=== PATIENT | female | born 1960 | race Caucasian/White ===

== ENCOUNTER → 2017-05-13 | Outpatient (CLI) | payer OTHER ==
[2017-05-13 18:04] LABS: CH 27.3; CHCM 31.4; HCT 22.3 % (34.0-46.0); HDW 3.69; HGB 7.2 gm/dL (11.4-16.0); Hypochromasia Moderate; MCH 28.2 pg (25.0-35.0); MCHC 32.2 g/dL (31.0-37.0); MCV 87.3 fL (80.0-100.0); Mean Platelet Volume 7.4; Poikilocytosis Slight; RBC 2.55 m/uL (3.80-5.40); RDW 15.9 % (11.5-15.5); WBC 5.3 k/uL (3.8-10.6)
== END | disposition home or self-care (01) ==
LOC: LABWHC1 16:38
PROVIDERS: ATTEND Family Medicine
DX: D64.9 Anemia, unspecified (principal)
CPT/HCPCS: 36415; 85027

== ENCOUNTER 2017-05-18 13:59 | Inpatient (IN) | payer OTHER ==
[2017-05-18 17:40] LABS: Glucose,Whole Blood 105 mg/dL (75-99)
[2017-05-18 19:26] LABS: Anisocytosis Slight; Basophils % (A) 0 %; CH 28.4; CHCM 31.9; Eosinophils # (A) 0.1 k/uL (0-0.7); Eosinophils % (A) 1 %; HDW 3.52; Hypochromasia Slight; Luc # (Auto) 0.11; Luc % (Auto) 2; Lymphocytes # (A) 0.8 k/uL (1.0-4.8); Lymphocytes % (A) 16 %; MCH 28.1 pg (25.0-35.0); MCHC 31.5 g/dL (31.0-37.0); MCV 89.2 fL (80.0-100.0); Mean Platelet Volume 8.8; Monocytes # (A) 0.4 k/uL (0-1.0); Monocytes % (A) 8 %; Neutrophils # (A) 3.6 k/uL (1.3-7.7); Neutrophils % (A) 72 %; Poikilocytosis Slight; RBC 2.25 m/uL (3.80-5.40); RDW 16.2 % (11.5-15.5); WBC (Perox) 5.08
[2017-05-18 19:32] LABS: HGB 6.3 gm/dL (11.4-16.0)
[2017-05-18] MEDS ORDERED: guaiFENesin 600 MG TABLET.ER PO PRN (19:36)
[2017-05-18] MEDS ORDERED: ACETAMINOPHEN TAB 325 MG TAB PO PRN (19:36)
[2017-05-18 19:56] LABS: Manual Review Performed; Stomatocytes Present
[2017-05-18 20:48] LABS: Glucose,Whole Blood 107 mg/dL (75-99)
[2017-05-18] MEDS: HYDROCORTISONE 10 MG TAB PO SCH (20:52)
[2017-05-19] MEDS: FUROSEMIDE 10 MG/ML 2 ML VIAL IV PRN ×2 (04:28→11:30)
[2017-05-19 05:15] LABS: Basophils % (A) 0 %; CH 29.2; CHCM 32.5; Eosinophils # (A) 0.1 k/uL (0-0.7); Eosinophils % (A) 2 %; HCT 22.6 % (34.0-46.0); HDW 3.69; HGB 7.3 gm/dL (11.4-16.0); Hypochromasia Slight; Luc % (Auto) 2; Lymphocytes # (A) 1.3 k/uL (1.0-4.8); Lymphocytes % (A) 25 %; MCHC 32.1 g/dL (31.0-37.0); MCV 90.2 fL (80.0-100.0); Mean Platelet Volume 7.6; Monocytes # (A) 0.4 k/uL (0-1.0); Monocytes % (A) 8 %; Neutrophils # (A) 3.2 k/uL (1.3-7.7); Neutrophils % (A) 63 %; Poikilocytosis Slight; RBC 2.51 m/uL (3.80-5.40); WBC 5.1 k/uL (3.8-10.6); WBC (Perox) 5.25
[2017-05-19] MEDS ORDERED: LEVOTHYROXINE 100 MCG TAB PO SCH (06:30)
[2017-05-19 07:21] LABS: Glucose,Whole Blood 78 mg/dL (75-99)
[2017-05-19] MEDS ORDERED: FLUTICASONE 50MCG/SPRAY NASAL 16GM EA NOSTRIL SCH (09:00)
[2017-05-19] MEDS ORDERED: NIFEdipine XL 30 MG TAB.ER.24 PO SCH (09:00)
[2017-05-19] MEDS ORDERED: FAMOTIDINE 20 MG TAB PO SCH (09:00)
[2017-05-19] MEDS ORDERED: HYDROCORTISONE 10 MG TAB PO SCH (09:00)
[2017-05-19 09:17] VITALS: PULSE 83
[2017-05-19 10:45] VITALS: BP 138/70; RESP 20; TEMP 97.8
--- NOTE | 2017-05-19 12:17 | P.DS ---
Providers Date of admission: 05/18/17 16:39 Expected date of discharge: 05/19/17 Attending physician: Misha Martin Consults: 05/18/17 18:08 Consult Physician Routine Consulting Provider: Price Angulo Consult Reason/Comments: anemia Do you want consulting provider notified?: Yes [facility]: 57-year-old female who was directly admitted to the hospital from Dr. Martin on May 18, 2017 for anemia. The patient has a prior history of CVA , diabetes mellitus, hypertension, asthma, right foot transmetatarsal amputation , and osteomyelitis. Her hemoglobin upon admission to the hospital was 6.3. She received 2 units of packed RBCs. Her hemoglobin this morning increased to 7.3, however her second unit of blood was still infusing. The patient denies any active bleeding episodes at home. The etiology behind the anemia was unknown and Dr. Angulo was consulted at the request of Dr. Martin. Dr. Martin stated the patient's hemoglobin is stable at this time patient may be discharged and to follow up outpatient. DISCHARGE DIAGNOSIS: 1. Anemia, etiology unknown at this time. Status post transfusion of 2 units packed RBCs. Patient to follow up outpatient with Dr. Martin. 2. History of essential hypertension. 3. History of asthma, no evidence of exacerbation 4. History of CVA, no deficits remaining Patient Condition at Discharge: Stable Plan - Discharge Summary New Discharge Prescriptions: Continue Acetaminophen Tab [Tylenol] 650 mg PO Q6HR PRN #0 tab PRN Reason: Fever And/ Or Pain Fluticasone Nasal [place] [Flonase Nasal [place]] 2 spr EA NOSTRIL DAILY guaiFENesin [Mucinex] 600 mg PO BID PRN PRN Reason: Congestion Ranitidine HCl [Zantac] 150 mg PO DAILY NIFEdipine [Procardia XL] 30 mg PO DAILY Levothyroxine Sodium [Synthroid] 100 mcg PO DAILY Hydrocortisone [Cortef] 5 mg PO HS Hydrocortisone [Cortef] 10 mg PO QAM Discharge Medication List Acetaminophen Tab [Tylenol] 650 mg PO Q6HR PRN #0 tab 03/06/16 [Rx] Fluticasone Nasal [place] [Flonase Nasal [place]] 2 spr EA NOSTRIL DAILY 05/18/17 [ History] Hydrocortisone [Cortef] 5 mg PO HS 05/18/17 [History] Hydrocortisone [Cortef] 10 mg PO QAM 05/18/17 [History] Levothyroxine Sodium [Synthroid] 100 mcg PO DAILY 05/18/17 [History] NIFEdipine [Procardia XL] 30 mg PO DAILY 05/18/17 [History] Ranitidine HCl [Zantac] 150 mg PO DAILY 05/18/17 [History] guaiFENesin [Mucinex] 600 mg PO BID PRN 05/18/17 [History] Follow up Appointment(s)/Referral(s): Misha Martin MD [Primary Care Provider] - 05/20/17 2:15 pm [facility], [NON-STAFF] - 1 Week Patient Instructions/Handouts: Anemia (DC) Discharge Disposition: HOME SELF-CARE
[2017-05-19 12:27] LABS: Glucose,Whole Blood 84 mg/dL (75-99)
[2017-05-19 13:23] LABS: CH 29.4; CHCM 32.8; HCT 28.7 % (34.0-46.0); HDW 3.71; Hypochromasia Slight; MCH 28.6 pg (25.0-35.0); MCHC 31.8 g/dL (31.0-37.0); MCV 89.9 fL (80.0-100.0); Mean Platelet Volume 8.1; Poikilocytosis Slight; RBC 3.19 m/uL (3.80-5.40); RDW 15.8 % (11.5-15.5); WBC 6.3 k/uL (3.8-10.6)
[2017-05-19 13:50] LABS: HGB 9.1 gm/dL (11.4-16.0)
--- NOTE | 2017-05-19 19:02 | P.CONS ---
History of Present Illness - Reason for Consult Consult date: 05/19/17 Severe anemia, and history of thrombocytopenia - History of Present Illness The patient is a 57-year-old lady, initially seen in consult in . At that time she had been admitted with masslike infiltrate in the lung, which actually resolved with antibiotics. The patient has had issues with nonhealing wounds and ulcers in the right lower exudate related to diabetes and vascular insufficiency. She was then seen in 2016 at [facility] for low platelets. Workup for the same was essentially negative, and it was felt that these were due to a combination of increased consumption from inflammation related to her wounds, as well as liver insufficiency. He being had shown cirrhotic appearing liver that was felt to be due to fatty infiltration. The patient subsequently developed severe GI bleeding and was transferred to the [facility] in late summer of 2015. According to her medical POA , the patient was inpatient at [facility] for about 11 months ! She had recurrent GI bleed with multiple scopes being negative for a definite source. In addition she also had multiple episodes of infection related to wounds in her right lower extremity. She was finally discharged about 3 months ago. Prior to her admission to the [facility], her hemoglobin had generally been in the 9-10 range. This was felt to be due to anemia of inflammation with the workup at the time being negative for other causes. Since discharge, hemoglobin has mostly been in the 8 range according to her POA. She was admitted to the hospital, as her hemoglobin was now found to be 6.6. The patient denied any obvious bleeding. In fact she stated that she did not really notice any change in symptoms. She has had partial amputation of her right foot, about 3 weeks ago. The patient is currently being transfused. Platelets on admission were 140 but is currently normal at 160+. Consult was placed for further evaluation and recommendations. Review of Systems Constitutional: Reports chronic pain, Reports fatigue Eyes: denies blurred vision, denies pain Ears: deny: decreased hearing, ear discharge, earache, tinnitus Ears, nose, mouth and throat: Denies headache, Denies sore throat Cardiovascular: Reports dyspnea on exertion Respiratory: Reports dyspnea Gastrointestinal: Denies abdominal pain, Denies diarrhea, Denies nausea, Denies vomiting Genitourinary: Denies dysuria, Denies hematuria Menstruation: Reports postmenopausal Musculoskeletal: Reports as per HPI (Chronic wound and circulation issues, especially affecting distal right lower extremity), Reports muscle weakness Integumentary: Reports foot/leg ulcers, Reports wounds Neurological: Reports weakness, Denies numbness Psychiatric: Reports depression, Reports difficulty concentrating, Denies anxiety Endocrine: Reports as per HPI (Known [place]'s syndrome), Reports fatigue, Reports weight change Hematologic/Lymphatic: Reports as per HPI Past Medical History Past Medical History: Asthma, CVA/TIA, Diabetes Mellitus, Hypertension Additional Past Medical History / Comment(s): osteomylitis right pinkly toe 2010 with hyper baric tx., uti History of Any Multi-Drug Resistant Organisms: MRSA, 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, 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 MDRO Source:: right arm skin-MRSA, urine-VRE Past Surgical History: Cholecystectomy, Orthopedic Surgery, Tonsillectomy Additional Past Surgical History / Comment(s): right arm mrsa 2010, right fifth toe partial amputation, right foot transmetatarsal amputated 12/10/15 Past Anesthesia/Blood Transfusion Reactions: No Reported Reaction Additional Past Anesthesia/Blood Transfusion Reaction / Comm: previous blood tranfusions Past Psychological History: Anxiety, Depression Smoking Status: Never smoker Past Alcohol Use History: None Reported Past Drug Use History: None Reported - Past Family History Father Family Medical History: AFIB, Congestive Heart Failure (CHF), COPD, Coronary Artery Disease (CAD), CVA/TIA, Diabetes Mellitus, Dialysis, GI Bleed, Hypertension, Myocardial Infarction (AL), Renal Disease, Sleep Apnea/CPAP/BIPAP Mother Family Medical History: Cancer, Osteoarthritis (OA) Additional Family Medical History / Comment(s): CA cervical mets to brain and lung Medications and Allergies Home Medications Medication Instructions Recorded Confirmed Type Fluticasone Nasal [place] [Flonase 2 spr EA NOSTRIL DAILY 05/18/17 05/18/17 History Nasal [place]] Hydrocortisone [Cortef] 5 mg PO HS 05/18/17 05/18/17 History Hydrocortisone [Cortef] 10 mg PO QAM 05/18/17 05/18/17 History Levothyroxine Sodium [Synthroid] 100 mcg PO DAILY 05/18/17 05/18/17 History NIFEdipine [Procardia XL] 30 mg PO DAILY 05/18/17 05/18/17 History Ranitidine HCl [Zantac] 150 mg PO DAILY 05/18/17 05/18/17 History guaiFENesin [Mucinex] 600 mg PO BID PRN 05/18/17 05/18/17 History Allergies Allergy/AdvReac Type Severity Reaction Status Date / Time Penicillins Allergy Unknown Verified 05/18/17 18:42 Childhood hydrocodone [From [place]] AdvReac WEAKNESS Verified 05/18/17 18:42 NARCOTICS AdvReac WEAKNESS Uncoded 05/18/17 18:42 Physical Exam Vitals: Vital Signs Temp Pulse Pulse Resp BP BP Pulse Ox 05/19/17 10:45 97.8 F 20 138/70 05/19/17 07:31 97.6 F 83 18 144/69 94 L 05/19/17 07:01 97.6 F 83 18 144/69 94 L 05/19/17 07:00 98.1 F 84 16 145/68 94 L 05/19/17 06:53 98.6 F 84 16 145/68 94 L 05/19/17 06:51 98.2 F 80 15 138/62 96 05/18/17 23:35 97.6 F 87 18 145/79 96 05/18/17 23:12 98.1 F 88 15 146/71 93 L 05/18/17 23:07 97.0 F L 91 17 138/70 97 05/18/17 23:05 97.3 F L 88 17 138/70 97 05/18/17 23:00 97.1 F L 89 18 140/72 96 05/18/17 22:55 97.0 F L 90 16 153/75 97 Intake and Output 05/19/17 05/19/17 05/19/17 06:59 14:59 22:59 Intake Total 510 560 Balance 510 560 Intake: Oral 200 250 Blood Product 310 310 As-1 Unit 0 310 [id number] Rc As-1 Unit 310 [id number] Other: Voiding Method Bedside Commode # Voids 1 1 # Bowel Movements 1 - Constitutional General appearance: no acute distress - EENT Eyes: EOMI, PERRLA ENT: hearing grossly normal, normal oropharynx - Neck Neck: no lymphadenopathy Thyroid: bilateral: normal size - Respiratory Respiratory: bilateral: CTA - Cardiovascular Rhythm: regular Heart sounds: normal: S1, S2 - Gastrointestinal General gastrointestinal: normal bowel sounds, soft - Integumentary Integumentary: calor, cellulitis (Distal right lower extremity), ulcer (Shallow ulcer, medial distal right lower extremity) - Neurologic Neurologic: CNII-XII intact - Musculoskeletal Partial amputation right foot Musculoskeletal: generalized weakness - Psychiatric Psychiatric: A&O x's 3, appropriate affect Results CBC & Chem 7: 05/19/17 13:06 Labs: Abnormal Lab Results - Last 24 Hours (Table) 05/18/17 05/18/17 05/18/17 Range/Units 17:37 19:14 19:14 RBC 2.25 L (3.80-5.40) m/uL Hgb 6.3 L* (11.4-16.0) gm/dL Hct 20.0 L* (34.0-46.0) % RDW 16.2 H (11.5-15.5) % Plt Count 126 L (150-450) k/uL Lymphocytes # 0.8 L (1.0-4.8) k/uL POC Glucose (mg/dL) 105 H (75-99) mg/dL Crossmatch See Detail 05/18/17 05/19/17 05/19/17 Range/Units 20:37 05:02 13:06 RBC 2.51 L 3.19 L (3.80-5.40) m/uL Hgb 7.3 L 9.1 L D (11.4-16.0) gm/dL Hct 22.6 L 28.7 L (34.0-46.0) % RDW 16.0 H 15.8 H (11.5-15.5) % Plt Count 140 L (150-450) k/uL Lymphocytes # (1.0-4.8) k/uL POC Glucose (mg/dL) 107 H (75-99) mg/dL Crossmatch Chest x-ray: report reviewed Assessment and Plan (1) Anemia Narrative/Plan: The patient has a history of fairly chronic anemia, though in the past has been quite mild, usually in the 10-11 range. She has had workup for this previously, indicating that this was due to inflammation/renal insufficiency. Since a prolonged hospitalization at the [facility], according to her POA, hemoglobin has mostly been in the 8 range. As noted, she did have significant GI bleeding during her hospitalization. Hemoglobin is currently drop to 6.6. The patient reports no obvious bleeding. A primary differential, is chronic bone marrow dysfunction due to renal insufficiency and inflammation, with additional acute compromise due to a recent blood loss and inflammation from surgery. She did receive a unit of blood during her recent amputation. Other causes, such as recurrent GI blood loss or hemolysis are also possibilities though less likely. The patient is appropriately being transfused. Follow counts posttransfusion to check response. Labs will be ordered to rule out other causes. If workup indicates that the anemia is related to inflammation and chronic bone marrow dysfunction, and continued monitoring would be recommended, with the anticipation that hemoglobin will improve, with improvement in her general health status. Status: Acute (2) Thrombocytopenia Narrative/Plan: On the patient has had mild drops and platelet counts transiently, with more significant rubs noted in association with acute illness. Based on workup in the past, it appears that this is again due to diminished production, as well as splenic sequestration due to her chronic liver disease, as well as increased consumption during acute illness/inflammation. Currently. Counts are normal/ near normal. No intervention is required. Status: Acute
[2017-05-19 19:33] LABS: Reticulocyte % 0.4 % (0.5-2.0)
[2017-05-19 19:44] LABS: % Iron Saturation 22.7 % (20-50)
[2017-05-19] MEDS: HYDROCORTISONE 10 MG TAB PO SCH (20:52)
--- NOTE | 2017-05-20 10:06 | HP ---
SUBJECTIVE: A 57-year-old white female admitted to the hospital for significant anemia. Hemoglobin was 6.3 Patient has had multiple medical conditions including multiple amputations of the right foot and Jennie disease. She has adrenocortical insufficiency. She has history of GERD, diabetes mellitus, hypothyroidism as well as hypertension. Medications include: 1. Nifedipine, Procardia XL, 30 mg daily. 2. Synthroid 100 mcg daily. 3. Cortef 10 mg q.a.m. and 5 q.h.s. 4. Fluticasone nasal spray. 5. Pepcid 20 mg daily. REVIEW OF SYSTEMS: PSYCH: Negative. NEURO: Negative. VASCULAR: Negative. IMMUNE: Negative. INTEGUMENT: Negative. GI: Negative. : Negative. OPHTHALMOLOGIC: Negative. PHYSICAL EXAM: Temp 98.1, blood pressure 130s to 140s over 60s to 70s, O2 is 92 to 94. Oxygen 94% on room. Respiratory rate 16 to 18. Pulse is 80s. CARDIOVASCULAR: S1 and S2. LUNGS: Transmitted airway sounds. HEMATOLOGIC: Negative Homans. PSYCH: Fair mood affect. NEUROLOGIC: Alert and oriented x3. ASSESSMENT: 1. Severe anemia requiring blood transfusion. 2. Anemia, probably multifactorial was checked for Dr. Angulo for hematology consult and rectal bleeding evaluation. Continue with current medications and treatment. Two units of packed red blood cells will be given then discharged home. MTDD
== END 2017-05-19 21:35 | disposition home health service (06) | DRG 812 ==
LOC: 4MS4W 16:39
PROVIDERS: ADMIT Family Medicine; ATTEND Family Medicine
PROC: 30233N1 Transfusion of Nonautologous Red Blood Cells into Peripheral Vein, Percutaneous Approach (ICD-10-PCS; principal; 2017-05-18)
DX: D64.9 Anemia, unspecified (principal); E24.9 Cushing's syndrome, unspecified; E27.40 Unspecified adrenocortical insufficiency; E11.69 Type 2 diabetes mellitus with other specified complication; D69.6 Thrombocytopenia, unspecified; E03.9 Hypothyroidism, unspecified; I10 Essential (primary) hypertension; J45.909 Unspecified asthma, uncomplicated; K21.9 Gastro-esophageal reflux disease without esophagitis; K76.9 Liver disease, unspecified; F32.9 Major depressive disorder, single episode, unspecified; F41.9 Anxiety disorder, unspecified; Z86.14 Personal history of Methicillin resistant Staphylococcus aureus infection; Z79.899 Other long term (current) drug therapy; Z82.49 Family history of ischemic heart disease and other diseases of the circulatory system; Z89.431 Acquired absence of right foot
CPT/HCPCS: 82607; 83540; 83550; 85025; 85027; 85045; 86850; 86900; 86901; 86920

== ENCOUNTER → 2017-06-01 | Outpatient (CLI) | payer OTHER ==
--- NOTE | 2017-06-01 11:33 | CT ---
EXAMINATION TYPE: CT abdomen wo con DATE OF EXAM: 06/01/2017 COMPARISON: NONE INDICATION: Patient has no complaints at time of study. Presurgical check of IVC filter. DLP: 1045 mGycm, Automated exposure control for dose reduction was used. CONTRAST: 0 mL of Omnipaque 350. Study performed without Oral Contrast TECHNIQUE: Axial images were obtained from above the diaphragm to the pubic rami in the axial plane a t 5 mm thick sections. Reconstructed images are reviewed on the computer in the coronal plane. FINDINGS: Limited CT sections are obtained the lung bases. Some streak opacities in the posterior medial right lung base most likely atelectasis.. CT ABDOMEN: Liver: Normal Spleen: Normal Pancreas: Normal Adrenal glands: The adrenal glands are normal. Gallbladder: Normal Kidneys: No masses are evident. No hydronephrosis is present. No cysts are present. There is some increased density within the inferior pole right kidney. A series of 0.3 cm calcifications are linear arrangement may be present inferior pole right kidney. Couple of punctate calcifications at the mid to inferior pole left kidney measuring 0.2 cm in diameter. Aorta: Normal Inferior vena cava: Inferior vena cava filter is present with the tip below the level of the renal ar teries and veins. CT PELVIS: Limited Loops of bowel within the abdomen and pelvis are normal. Studies without oral contrast limiting t he evaluation. There is an anterior abdominal wall hernia containing loops of bowel without obstructi on. This area is incompletely evaluated on of the [id number]. IMPRESSIONS: 1. Suspected 0.3 cm calcifications inferior pole right kidney. No hydronephrosis is evident. Couple of 0.2 cm punctate mid to inferior pole left renal calcifications are also present. 2. Inferior vena cava filter position appears normal.
== END | disposition home or self-care (01) ==
LOC: RADCTMAIN 08:34
PROVIDERS: ATTEND Family Medicine
DX: N28.89 Other specified disorders of kidney and ureter (principal); T82.515A Breakdown (mechanical) of umbrella device, initial encounter
CPT/HCPCS: 74150

== ENCOUNTER → 2018-06-24 | Outpatient (CLI) | payer OTHER ==
[2018-06-24 17:41] LABS: Basophils % (A) 1 %; Eosinophils # (A) 0.2 k/uL (0-0.7); Eosinophils % (A) 4 %; HCT 35.4 % (34.0-46.0); Hypochromasia Slight; Lymphocytes # (A) 1.5 k/uL (1.0-4.8); Lymphocytes % (A) 24 %; MCH 27.9 pg (25.0-35.0); MCHC 31.1 g/dL (31.0-37.0); MCV 89.6 fL (80.0-100.0); Mean Platelet Volume 6.6; Monocytes # (A) 0.3 k/uL (0-1.0); Monocytes % (A) 5 %; Neutrophils # (A) 3.9 k/uL (1.3-7.7); Neutrophils % (A) 65 %; Platelet Count 173 k/uL (150-450); RBC 3.95 m/uL (3.80-5.40)
[2018-06-24 17:53] LABS: Calcium 9.8 mg/dL (8.4-10.2); Potassium 4.7 mmol/L (3.5-5.1); Total Bilirubin 0.2 mg/dL (0.2-1.3)
[2018-06-24 18:06] LABS: T4, Free (Free Thyroxine) 1.27 ng/dL (0.78-2.19)
[2018-06-25 03:08] LABS: Hemoglobin A1C 4.6 % (4.0-6.0)
== END ==
LOC: LABWHC1 16:27
PROVIDERS: ATTEND Family Medicine
DX: B89 Unspecified parasitic disease (principal); E11.9 Type 2 diabetes mellitus without complications; Z79.899 Other long term (current) drug therapy
CPT/HCPCS: 36415; 80053; 82533; 82607; 83036; 83540; 84439; 84443; 84481; 85025

== ENCOUNTER → 2018-11-17 | Outpatient (CLI) | payer MEDICARE, OTHER ==
[2018-11-17 14:28] LABS: Basophils # (A) 0.1 k/uL (0-0.2); Basophils % (A) 1 %; Eosinophils # (A) 0.3 k/uL (0-0.7); Eosinophils % (A) 6 %; HGB 11.3 gm/dL (11.4-16.0); Hypochromasia Slight; Lymphocytes # (A) 1.4 k/uL (1.0-4.8); Lymphocytes % (A) 26 %; MCH 27.9 pg (25.0-35.0); MCHC 31.4 g/dL (31.0-37.0); MCV 88.8 fL (80.0-100.0); Mean Platelet Volume 6.2; Monocytes # (A) 0.2 k/uL (0-1.0); Monocytes % (A) 5 %; Neutrophils # (A) 3.1 k/uL (1.3-7.7); Neutrophils % (A) 60 %; Platelet Count 186 k/uL (150-450); RBC 4.06 m/uL (3.80-5.40); RDW 14.4 % (11.5-15.5); WBC 5.2 k/uL (3.8-10.6)
[2018-11-17 14:34] LABS: Appearance,Urine Clear (Clear); Bilirubin,Urine Negative (Negative); Blood,Urine Small (Negative); Color,Urine Colorless; Glucose,Urine (UA) Negative (Negative); Ketones,Urine Negative (Negative); Leukocyte Esterase,Urine Negative (Negative); Nitrite,Urine Negative (Negative); Protein,Urine 1+ (Negative); RBC,Urine 4 /hpf (0-5); Specific Gravity,Urine 1.004 (1.001-1.035); Squamous Epithelial Cell,Urine <1 /hpf (0-4); Urobilinogen,Urine <2.0 mg/dL (<2.0)
[2018-11-17 19:03] LABS: Albumin 4.4 g/dL (3.80-4.90); Anion Gap 7.5 mmol/L (4.00-12.00); Calcium 10.2 mg/dL (8.7-10.3); Carbon Dioxide 26.5 mmol/L (21.6-31.8); Phosphorus 4.1 mg/dL (2.4-5.1); Potassium 5.1 mmol/L (3.5-5.5)
[2018-11-17 19:18] LABS: Protein, Total 6.8 g/dL (6.2-8.2)
[2018-11-18 13:31] LABS: Albumin 4.01 g/dL (3.80-4.90); Gamma Globulin 1.11 g/dL (0.70-1.50)
[2018-11-18 14:18] LABS: Anti-Glomerular Basement Memb 4 UNITS (0-20)
[2018-11-18 14:42] LABS: C-ANCA <1:20 Titer (<1:20); P-ANCA <1:20 Titer (<1:20)
== END | disposition home or self-care (01) ==
LOC: LABWHC1 13:37
PROVIDERS: ATTEND Internal Medicine
DX: N28.9 Disorder of kidney and ureter, unspecified (principal)
CPT/HCPCS: 36415; 80069; 81001; 82043; 82570; 82784; 83516; 84156; 84165; 85025; 86038; 86255

== ENCOUNTER → 2018-12-16 | Outpatient (CLI) | payer MEDICARE, OTHER ==
[2018-12-16 14:45] LABS: Basophils % (A) 1 %; Eosinophils # (A) 0.2 k/uL (0-0.7); Eosinophils % (A) 4 %; HCT 35.8 % (34.0-46.0); Hypochromasia Slight; Lymphocytes # (A) 1.4 k/uL (1.0-4.8); Lymphocytes % (A) 29 %; MCH 27.2 pg (25.0-35.0); MCHC 30.7 g/dL (31.0-37.0); MCV 88.6 fL (80.0-100.0); Mean Platelet Volume 7.7; Monocytes # (A) 0.2 k/uL (0-1.0); Monocytes % (A) 4 %; Neutrophils % (A) 61 %; Platelet Count 150 k/uL (150-450); RBC 4.04 m/uL (3.80-5.40); RDW 14.2 % (11.5-15.5)
[2018-12-16 14:52] LABS: Amorphous Sediment,Urine Rare /hpf; Appearance,Urine Clear (Clear); Bilirubin,Urine Negative (Negative); Blood,Urine Trace (Negative); Color,Urine Colorless; Glucose,Urine (UA) Negative (Negative); Ketones,Urine Negative (Negative); Leukocyte Esterase,Urine Negative (Negative); Nitrite,Urine Negative (Negative); PH, Urine 5.5 (5.0-8.0); Protein,Urine 1+ (Negative); RBC,Urine 2 /hpf (0-5); Specific Gravity,Urine 1.004 (1.001-1.035); Squamous Epithelial Cell,Urine <1 /hpf (0-4); Urobilinogen,Urine <2.0 mg/dL (<2.0); WBC,Urine 1 /hpf (0-5)
[2018-12-16 15:52] LABS: Ionized Calcium 5.9 mg/dL (4.5-5.3)
[2018-12-16 20:12] LABS: Parathyroid Hormone Intact 53.1 pg/mL (14.0-72.0)
[2018-12-16 20:13] LABS: Albumin 4.4 g/dL (3.80-4.90); Anion Gap 4.2 mmol/L (4.00-12.00); Calcium 9.9 mg/dL (8.7-10.3); Carbon Dioxide 23.8 mmol/L (21.6-31.8); Phosphorus 4.3 mg/dL (2.4-5.1); Potassium 5.4 mmol/L (3.5-5.5)
[2018-12-16 20:22] LABS: Protein, Total 6.7 g/dL (6.2-8.2)
[2018-12-16 20:50] LABS: Creatinine,Urine Random 16.9 mg/dL
[2018-12-19 04:28] LABS: Anti-Glomerular Basement Memb 3 UNITS (0-20)
[2018-12-19 11:58] LABS: Albumin 3.92 g/dL (3.80-4.90); Gamma Globulin 1.07 g/dL (0.70-1.50)
[2018-12-19 14:28] LABS: C-ANCA <1:20 Titer (<1:20); P-ANCA <1:20 Titer (<1:20)
== END | disposition home or self-care (01) ==
LOC: LABWHC1 13:51
PROVIDERS: ATTEND Internal Medicine
DX: E83.52 Hypercalcemia (principal); N28.9 Disorder of kidney and ureter, unspecified
CPT/HCPCS: 36415; 80069; 81001; 82043; 82330; 82570; 82784; 83516; 83970; 84156; 84165; 85025; 86038; 86255

== ENCOUNTER 2019-02-04 21:46 | Emergency (ER) | payer MEDICARE, OTHER ==
[2019-02-04 22:25] VITALS: TEMP 98.3
--- NOTE | 2019-02-04 23:14 | XR ---
EXAM: XR Chest, 2 Views CLINICAL HISTORY: ITS.REASON XR Reason: cough TECHNIQUE: Frontal and lateral views of the chest. COMPARISON: Chest radiograph on 08/25/2017 FINDINGS: Hardware: None. Lungs/pleura: Similar mild atelectasis or scarring in the lateral right lung base. No focal consolidation. No pleural effusion or pneumothorax. Heart/mediastinum: Normal. No cardiomegaly. Soft tissues: Unremarkable. Bones: No acute fracture. Degenerative changes of the acromioclavicular joints and spine. Upper abdomen: IVC filter partially visualized. Possible cholecystectomy clips in the right upper quadrant. IMPRESSION: No acute disease.
[2019-02-05 00:35] LABS: Basophils % (A) 1 %; Eosinophils # (A) 0.3 k/uL (0-0.7); Eosinophils % (A) 4 %; HCT 34.7 % (34.0-46.0); HGB 11.3 gm/dL (11.4-16.0); Lymphocytes # (A) 1.8 k/uL (1.0-4.8); Lymphocytes % (A) 25 %; MCH 28.2 pg (25.0-35.0); MCHC 32.6 g/dL (31.0-37.0); MCV 86.6 fL (80.0-100.0); Mean Platelet Volume 7.4; Monocytes # (A) 0.3 k/uL (0-1.0); Monocytes % (A) 4 %; Neutrophils # (A) 4.6 k/uL (1.3-7.7); Neutrophils % (A) 65 %; Platelet Count 188 k/uL (150-450); RBC 4.01 m/uL (3.80-5.40); RDW 14.6 % (11.5-15.5); WBC 7.1 k/uL (3.8-10.6)
[2019-02-05 00:38] LABS: Albumin 4.2 g/dL (3.5-5.0); Calcium 9.5 mg/dL (8.4-10.2); Potassium 3.9 mmol/L (3.5-5.1); Total Bilirubin 0.3 mg/dL (0.2-1.3); Total Protein 7.1 g/dL (6.3-8.2)
[2019-02-05 01:27] VITALS: BP 171/82; PULSE 73; RESP 16
--- NOTE | 2019-02-05 01:33 | ED ---
General Adult HPI - General Source: patient, RN notes reviewed, old records reviewed Mode of arrival: ambulatory Limitations: no limitations <Colton Feliz - Last Filed: 02/05/19 01:39> <Emmy Mckay - Last Filed: 02/06/19 06:23> - General Chief complaint: Upper Respiratory Infection Stated complaint: Cough Time Seen by Provider: 02/04/19 23:34 - History of Present Illness Initial comments: 58-year-old female patient past medical history of asthma, hypertension, thyroid disorder, CKD presents to ER for sore throat and cough of one week. Patient states the cough is nonproductive, dry. Patient works that he has had some minor waxing and waning low-grade fevers at home. Denies any chest pain or shor tness breath. Denies any nausea vomiting diarrhea. Denies any abdominal pain, denies other complaints. Systemic: Pt denies fatigue, myalgia, rash. Pt denies weakness, night sweats, weight loss. Neuro: Pt denies headache, visual disturbances, syncope or pre-syncope. HEENT: Pt denies ocular discharge or irritation, otalgia, rhinorrhea, or notable lymphadenopathy. Cardiopulmonary: Pt denies chest pain, SOB, heart palpitations, dyspnea on exertion. Abdominal/GI: Pt denies abdominal pain, n/v/d. : Pt denies dysuria, burning w/ urination, frequency/urgency. Denies new onset urinary or bowel incontinence. MSK: Pt denies myalgia, loss of strength or function in extremities. Neuro: Pt denies new onset weakness, paresthesias. (Colton Feliz) - Related Data Home Medications Medication Instructions Recorded Confirmed Fluticasone Nasal [place] [Flonase 2 spr EA NOSTRIL DAILY 05/18/17 08/24/17 Nasal [place]] Levothyroxine Sodium [Synthroid] 100 mcg PO DAILY 05/18/17 08/24/17 Ranitidine HCl [Zantac] 150 mg PO DAILY 05/18/17 08/24/17 guaiFENesin [Mucinex] 600 mg PO BID PRN 05/18/17 08/24/17 Ferrous Sulfate [Iron (65 MG 325 mg PO DAILY 08/24/17 08/24/17 Elemental)] Folic Acid 0.4 mg PO DAILY 08/24/17 08/24/17 Hydrocortisone [Cortef] 10 mg PO DAILY 08/24/17 08/24/17 Loperamide [Imodium] 2 mg PO QID 08/24/17 08/24/17 Magnesium Oxide [Mukherjee] 500 mg PO QID PRN 08/24/17 08/24/17 Ondansetron [Zofran] 4 mg PO Q12HR PRN 08/24/17 08/24/17 Previous Rx's Medication Instructions Recorded Acetaminophen Tab [Tylenol] 650 mg PO Q6HR PRN #0 tab 03/06/16 Cephalexin [Keflex] 500 mg PO Q8HR #30 cap 08/27/17 NIFEdipine XL [Procardia XL] 60 mg PO Q12HR #60 tab.er.24 08/30/17 Azithromycin [Zithromax Z-pack] 0 mg PO DIRECTED #6 tab 02/05/19 Allergies Allergy/AdvReac Type Severity Reaction Status Date / Time Penicillins Allergy Unknown Verified 02/04/19 22:25 Childhood hydrocodone [From [place]] AdvReac WEAKNESS Verified 02/04/19 22:25 NARCOTICS AdvReac WEAKNESS Uncoded 02/04/19 22:25 Review of Systems ROS Other: All systems not noted in ROS Statement are negative. <Colton Feliz - Last Filed: 02/05/19 01:39> ROS Other: All systems not noted in ROS Statement are negative. <Emmy Mckay - Last Filed: 02/06/19 06:23> ROS Statement: Those systems with pertinent positive or pertinent negative responses have been documented in the HPI. Past Medical History Past Medical History: Asthma, CVA/TIA, Hypertension, Thyroid Disorder Additional Past Medical History / Comment(s): Cushings syndrome, KRISTOPHER, CKD, tubular necrosis, cirrhosis of the liver, ischemic colitis, osteoporosis, brittle bones, systolic CHF, CVA (maybe 2) no residuals, TIA, anemia with transfusions, osteomylitis R little toe in 2010, R foot wound-wears mediboot, blood sugars normal since pituitary tumor removal, UtIs, hypothyroid, R axillae abscess/cellulitis with surgery, 04/2016 pt found to have abnormal healing of R hip fracture and now has femoral head decay, pt also had recent tibial plateau fracture that had healed but pt fell getting into the car and now has a new tibial or patellar fracture. History of Any Multi-Drug Resistant Organisms: MRSA, VRE Date of last positivie culture/infection: 08/16/2013-MRSA, 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 MDRO Source:: right arm skin-MRSA, urine-VRE Past Surgical History: Joint Replacement, Orthopedic Surgery Additional Past Surgical History / Comment(s): IVC filter for prophylaxis prior to pituitary tumor removal, right arm abcess-mrsa 2010 with I&D, PICC line since removed, R groin abscess I&D, right fifth toe partial amputation, right foot transmetatarsal amputated 12/10/15-multiple revisions. Past Anesthesia/Blood Transfusion Reactions: No Reported Reaction Additional Past Anesthesia/Blood Transfusion Reaction / Comment(s): previous blood tranfusions Past Psychological History: Anxiety, Depression Smoking Status: Never smoker Past Alcohol Use History: None Reported Past Drug Use History: None Reported - Past Family History Father Family Medical History: AFIB, Congestive Heart Failure (CHF), COPD, Coronary Artery Disease (CAD), CVA/TIA, Diabetes Mellitus, Dialysis, GI Bleed, Hypertension, Myocardial Infarction ([place]), Renal Disease, Sleep Apnea/CPAP/BIPAP Mother Family Medical History: Cancer, Osteoarthritis (OA) Additional Family Medical History / Comment(s): CA cervical mets to brain and lung <Colton Feliz - Last Filed: 02/05/19 01:39> General Exam Limitations: no limitations <Colton Feliz - Last Filed: 02/05/19 01:39> - General Exam Comments Initial Comments: Constitutional: NAD, AOX3, Pt has pleasant affect. HEENT: NC/AT, trachea midline, neck supple, no lymphadenopathy. Posterior pharynx mildly erythematous, without exudates. External ears appear normal, without discharge. Mucous membranes moist. Eyes PERRLA, EOM intact. There is no scleral icterus. No pallor noted. Cardiopulmonary: RRR, no murmurs, rubs or gallops, no JVD noted. Lungs CTAB in anterior and posterior peña. No peripheral edema. Abdominal exam: Abdomen soft and non-distended. Abdomen non-tender to palpation in all 4 quadrants. Bowel sounds active in LLQ. No hepatosplenomegaly. No ecchymosis Neuro: CN II-XII grossly intact. No nuchal rigidity. MSK: No posterior calf tenderness bilaterally, homans sign negative bilaterally. Posterior tibialis and radial pulse +2 bilaterally. Sensation intact in upper and lower extremities. Full active ROM in upper and lower extremities, 5/5 stregnth. (Colton Feliz) Course Vital Signs 02/04/19 02/05/19 22:22 01:26 Temperature 98.3 F Pulse Rate 86 73 Respiratory 20 16 Rate Blood Pressure 180/84 171/82 O2 Sat by Pulse 98 96 Oximetry Medical Decision Making - Lab Data Result diagrams: 02/05/19 00:12 02/05/19 00:12 <Colton Feliz - Last Filed: 02/05/19 01:39> - Lab Data Result diagrams: 02/05/19 00:12 02/05/19 00:12 <Emmy Mckay - Last Filed: 02/06/19 06:23> - Medical Decision Making 58-year-old female patient past medical history of asthma, hypertension, thyroid disorder, CKD presents to ER for sore throat and cough of one week. Patient states the cough is nonproductive, dry. Patient works that he has had some minor waxing and waning low-grade fevers at home. Denies any chest pain or shortness breath. Denies any nausea vomiting diarrhea. Denies any abdominal pain, denies other complaints. Pt VS displayed mild hypertension, improved on rpt vs. Physical exam displayed: Posterior pharynx mildly erythematous, without exudates. Lungs CTAB in anterior and posterior peña. No peripheral edema. Laboratory investigations displayed nonpassive CBC, CMP. Cr at baseline for patient. Influenza negative, group A strep negative. Chest x-ray revealed no acute process. Patient to be prescribed prophylactic azithromycin Z-Ortega. Patient to follow up with primary care provider in 1-2 days. Patient return to ER conditions worsen. Case discussed with Dr. Mckay. (Colton Feliz) I was available for consultation in the emergency department. The history and physical exam were done by the midlevel provider. I was consulted for this patient's care. I reviewed the case with the midlevel provider and based on their presentation of the patient, I agree with the assessment, medical decision making and plan of care as documented. Chart was dictated using [employer] dictation software. Attempts were made to correct any dictation errors however some typographical errors may persist. (Emmy Mckay) - Lab Data Lab Results 02/04/19 02/04/19 02/05/19 Range/Units 00:20 00:20 00:12 WBC 7.1 (3.8-10.6) k/uL RBC 4.01 (3.80-5.40) m/uL Hgb 11.3 L (11.4-16.0) gm/dL Hct 34.7 (34.0-46.0) % MCV 86.6 (80.0-100.0) fL MCH 28.2 (25.0-35.0) pg MCHC 32.6 (31.0-37.0) g/dL RDW 14.6 (11.5-15.5) % Plt Count 188 (150-450) k/uL Neutrophils % 65 % Lymphocytes % 25 % Monocytes % 4 % Eosinophils % 4 % Basophils % 1 % Neutrophils # 4.6 (1.3-7.7) k/uL Lymphocytes # 1.8 (1.0-4.8) k/uL Monocytes # 0.3 (0-1.0) k/uL Eosinophils # 0.3 (0-0.7) k/uL Basophils # 0.0 (0-0.2) k/uL Sodium (137-145) mmol/L Potassium (3.5-5.1) mmol/L Chloride (98-107) mmol/L Carbon Dioxide (22-30) mmol/L Anion Gap mmol/L BUN (7-17) mg/dL Creatinine (0.52-1.04) mg/dL Est GFR (CKD-EPI)AfAm (>60 ml/min/1.73 sqM) Est GFR (CKD-EPI)NonAf (>60 ml/min/1.73 sqM) Glucose (74-99) mg/dL Plasma Lactic Acid Pino (0.7-2.0) mmol/L Calcium (8.4-10.2) mg/dL Total Bilirubin (0.2-1.3) mg/dL AST (14-36) U/L ALT (9-52) U/L Alkaline Phosphatase (38-126) U/L Total Protein (6.3-8.2) g/dL Albumin (3.5-5.0) g/dL Influenza Type A RNA Not Detected (Not Detectd) Influenza Type B (PCR) Not Detected (Not Detectd) Group A Strep Rapid Negative (Negative) 02/05/19 02/05/19 Range/Units 00:12 00:12 WBC (3.8-10.6) k/uL RBC (3.80-5.40) m/uL Hgb (11.4-16.0) gm/dL Hct (34.0-46.0) % MCV (80.0-100.0) fL MCH (25.0-35.0) pg MCHC (31.0-37.0) g/dL RDW (11.5-15.5) % Plt Count (150-450) k/uL Neutrophils % % Lymphocytes % % Monocytes % % Eosinophils % % Basophils % % Neutrophils # (1.3-7.7) k/uL Lymphocytes # (1.0-4.8) k/uL Monocytes # (0-1.0) k/uL Eosinophils # (0-0.7) k/uL Basophils # (0-0.2) k/uL Sodium 144 (137-145) mmol/L Potassium 3.9 (3.5-5.1) mmol/L Chloride 107 (98-107) mmol/L Carbon Dioxide 29 (22-30) mmol/L Anion Gap 8 mmol/L BUN 23 H (7-17) mg/dL Creatinine 1.50 H (0.52-1.04) mg/dL Est GFR (CKD-EPI)AfAm 44 (>60 ml/min/1.73 sqM) Est GFR (CKD-EPI)NonAf 38 (>60 ml/min/1.73 sqM) Glucose 117 H (74-99) mg/dL Plasma Lactic Acid Pino 0.8 (0.7-2.0) mmol/L Calcium 9.5 (8.4-10.2) mg/dL Total Bilirubin 0.3 (0.2-1.3) mg/dL AST 30 (14-36) U/L ALT 23 (9-52) U/L Alkaline Phosphatase 127 H (38-126) U/L Total Protein 7.1 (6.3-8.2) g/dL Albumin 4.2 (3.5-5.0) g/dL Influenza Type A RNA (Not Detectd) Influenza Type B (PCR) (Not Detectd) Group A Strep Rapid (Negative) Disposition Is patient prescribed a controlled substance at d/c from ED?: No <Colton Feliz - Last Filed: 02/05/19 01:39> <Emmy Mckay - Last Filed: 02/06/19 06:23> Clinical Impression: Cough, Viral syndrome Disposition: HOME SELF-CARE Condition: Stable Instructions (If sedation given, give patient instructions): Viral Syndrome (ED) Additional Instructions: Patient to adhere to previously discussed treatment plan and will take medication(s) as directed. Patient to follow up with PCP in 1-2 days. Patient to return to ED if symptoms do not improve. Follow-up with primary care provider in 1-2 days. Take medications directed. Return to ER if condition worsens. Prescriptions: Azithromycin [Zithromax Z-pack] 0 mg PO DIRECTED #6 tab Referrals: Misha Martin MD [Primary Care Provider] - 1-2 days
== END 2019-02-05 01:50 | disposition home or self-care (01) ==
LOC: EC 21:46
DX: B34.9 Viral infection, unspecified (principal); J45.909 Unspecified asthma, uncomplicated; I12.9 Hypertensive chronic kidney disease with stage 1 through stage 4 chronic kidney disease, or unspecified chronic kidney disease; N18.9 Chronic kidney disease, unspecified; E24.9 Cushing's syndrome, unspecified; E03.9 Hypothyroidism, unspecified; D64.9 Anemia, unspecified; Z88.0 Allergy status to penicillin; Z88.5 Allergy status to narcotic agent; Z79.51 Long term (current) use of inhaled steroids; Z79.52 Long term (current) use of systemic steroids; Z79.890 Hormone replacement therapy; Z79.899 Other long term (current) drug therapy; Z86.14 Personal history of Methicillin resistant Staphylococcus aureus infection; Z86.73 Personal history of transient ischemic attack (TIA), and cerebral infarction without residual deficits; Z87.19 Personal history of other diseases of the digestive system
CPT/HCPCS: 36415; 71046; 80053; 83605; 85025; 87081; 87430; 87502; 99284

== ENCOUNTER → 2019-02-22 | Outpatient (CLI) | payer MEDICARE, OTHER ==
[2019-02-23 00:38] LABS: T4, Free (Free Thyroxine) 1.2 ng/dL (0.80-1.80)
== END | disposition home or self-care (01) ==
LOC: LABWHC1 15:43
PROVIDERS: ATTEND Internal Medicine
DX: E24.0 Pituitary-dependent Cushing's disease (principal)
CPT/HCPCS: 36415; 84439; 84443

== ENCOUNTER → 2019-03-14 | Outpatient (CLI) | payer MEDICARE ==
[2019-03-14 16:51] LABS: Basophils # (A) 0.1 k/uL (0-0.2); Basophils % (A) 1 %; Eosinophils # (A) 0.3 k/uL (0-0.7); Eosinophils % (A) 5 %; HCT 33.9 % (34.0-46.0); HGB 10.5 gm/dL (11.4-16.0); Hypochromasia Slight; Lymphocytes # (A) 1.4 k/uL (1.0-4.8); Lymphocytes % (A) 23 %; MCH 27.9 pg (25.0-35.0); MCHC 30.8 g/dL (31.0-37.0); MCV 90.4 fL (80.0-100.0); Mean Platelet Volume 7.8; Monocytes # (A) 0.3 k/uL (0-1.0); Monocytes % (A) 5 %; Neutrophils # (A) 3.8 k/uL (1.3-7.7); Neutrophils % (A) 64 %; Platelet Count 192 k/uL (150-450); RBC 3.75 m/uL (3.80-5.40); RDW 15.7 % (11.5-15.5)
[2019-03-14 16:56] LABS: African American GFR (CKD) 32 (>60 ml/min/1.73 sqM); Albumin 4.2 g/dL (3.5-5.0); Amorphous Sediment,Urine Rare /hpf; Anion Gap 6 mmol/L; Appearance,Urine Clear (Clear); Bacteria,Urine Rare /hpf; Bilirubin,Urine Negative (Negative); Blood Urea Nitrogen 46 mg/dL (7-17); Blood,Urine Small (Negative); Calcium 9.4 mg/dL (8.4-10.2); Carbon Dioxide 33 mmol/L (22-30); Chloride 101 mmol/L (98-107); Color,Urine Light Yellow; Glucose 86 mg/dL (74-99); Glucose,Urine (UA) Negative (Negative); Hyaline Casts,Urine 4 /lpf (0-2); Ketones,Urine Negative (Negative); Leukocyte Esterase,Urine Negative (Negative); Mucus,Urine Rare /hpf; Nitrite,Urine Negative (Negative); PH, Urine 6.5 (5.0-8.0); Phosphorus 4.5 mg/dL (2.5-4.5); Potassium 4.8 mmol/L (3.5-5.1); Protein,Urine 2+ (Negative); RBC,Urine 9 /hpf (0-5); Sodium 140 mmol/L (137-145); Specific Gravity,Urine 1.007 (1.001-1.035); Squamous Epithelial Cell,Urine <1 /hpf (0-4); Urobilinogen,Urine <2.0 mg/dL (<2.0); WBC,Urine 1 /hpf (0-5)
== END | disposition home or self-care (01) ==
LOC: LABWHC1 16:12
PROVIDERS: ATTEND Internal Medicine
DX: N28.9 Disorder of kidney and ureter, unspecified (principal)
CPT/HCPCS: 36415; 80069; 81001; 82043; 82570; 84156; 85025

== ENCOUNTER → 2019-09-29 | Outpatient (CLI) | payer MEDICARE ==
[2019-09-29 17:24] LABS: Prothrombin Time 10.5 sec (9.0-12.0)
== END | disposition home or self-care (01) ==
LOC: LABWHC1 16:00
PROVIDERS: ATTEND Internal Medicine
DX: Z23 Encounter for immunization (principal)
CPT/HCPCS: 36415; 85610

== ENCOUNTER → 2020-06-25 | Outpatient (CLI) | payer MEDICARE ==
[2020-06-25 16:29] LABS: HCT 35.5 % (34.0-46.0); HGB 11.2 gm/dL (11.4-16.0); Hypochromasia Slight; MCH 28.2 pg (25.0-35.0); MCHC 31.4 g/dL (31.0-37.0); MCV 89.9 fL (80.0-100.0); Mean Platelet Volume 7.3; Platelet Count 158 k/uL (150-450); RBC 3.95 m/uL (3.80-5.40); RDW 13.9 % (11.5-15.5); WBC 7.1 k/uL (3.8-10.6)
[2020-06-25 17:29] LABS: Appearance,Urine Clear (Clear); Bilirubin,Urine Negative (Negative); Blood,Urine Negative (Negative); Color,Urine Colorless; Glucose,Urine (UA) Negative (Negative); Ketones,Urine Negative (Negative); Leukocyte Esterase,Urine Negative (Negative); Nitrite,Urine Negative (Negative); PH, Urine 5.5 (5.0-8.0); Protein,Urine Negative (Negative); Specific Gravity,Urine 1.006 (1.001-1.035); Urobilinogen,Urine <2.0 mg/dL (<2.0)
[2020-06-25 17:43] LABS: Creatinine,Urine Random 22.9 mg/dL; Protein/Creatinine Ratio,Urine 0.83
[2020-06-26 05:53] LABS: Urine Creatinine 23.7 mg/dL
[2020-06-26 11:46] LABS: African American GFR (CKD) 22.3 (60.0-200.0); Albumin 4.7 g/dL (3.80-4.90); Anion Gap 12.2 mmol/L (4.00-12.00); BUN/Creat Ratio 23.08 Ratio (12.00-20.00); Calcium 9.6 mg/dL (8.7-10.3); Carbon Dioxide 22.8 mmol/L (21.6-31.8); Non-African American GFR(CKD) 19.3 (60.0-200.0); Phosphorus 4.5 mg/dL (2.4-5.1); Potassium 4.5 mmol/L (3.5-5.5)
== END | disposition home or self-care (01) ==
LOC: LABWHC1 16:07
PROVIDERS: ATTEND Internal Medicine
DX: N18.4 Chronic kidney disease, stage 4 (severe) (principal)
CPT/HCPCS: 36415; 80069; 81003; 82043; 82570; 83970; 84156; 85027

== ENCOUNTER → 2020-10-11 | Outpatient (CLI) | payer MEDICARE ==
[2020-10-11 16:17] LABS: Appearance,Urine Clear (Clear); Bilirubin,Urine Negative (Negative); Blood,Urine Negative (Negative); Color,Urine Light Yellow; Glucose,Urine (UA) Negative (Negative); Ketones,Urine Negative (Negative); Leukocyte Esterase,Urine Negative (Negative); Nitrite,Urine Negative (Negative); Protein,Urine Trace (Negative); Specific Gravity,Urine 1.013 (1.001-1.035); Urobilinogen,Urine <2.0 mg/dL (<2.0)
[2020-10-11 23:41] LABS: African American GFR (CKD) 22.3 (60.0-200.0); Albumin 4.8 g/dL (3.80-4.90); Anion Gap 7.5 mmol/L (4.00-12.00); BUN/Creat Ratio 28.85 Ratio (12.00-20.00); Calcium 9.9 mg/dL (8.7-10.3); Carbon Dioxide 24.5 mmol/L (21.6-31.8); Non-African American GFR(CKD) 19.3 (60.0-200.0); Phosphorus 4.6 mg/dL (2.4-5.1); Potassium 4.3 mmol/L (3.5-5.5)
[2020-10-12 04:06] LABS: Creatinine,Urine Random 80.1 mg/dL
[2020-10-12 06:14] LABS: Total Protein,Urine Random 20.9 mg/dL (0.0-13.5)
== END | disposition home or self-care (01) ==
LOC: LABWHC1 15:46
PROVIDERS: ATTEND Internal Medicine
DX: N18.4 Chronic kidney disease, stage 4 (severe) (principal)
CPT/HCPCS: 36415; 80069; 81003; 82570; 84156

== ENCOUNTER → 2020-12-12 | Outpatient (CLI) | payer MEDICARE ==
[2020-12-13 02:51] LABS: African American GFR (CKD) 24.6 (60.0-200.0); Anion Gap 10.6 mmol/L (4.00-12.00); BUN/Creat Ratio 21.67 Ratio (12.00-20.00); Carbon Dioxide 22.4 mmol/L (21.6-31.8); Non-African American GFR(CKD) 21.2 (60.0-200.0); Potassium 4.1 mmol/L (3.5-5.5)
== END | disposition home or self-care (01) ==
LOC: LABWHC1 13:25
PROVIDERS: ATTEND Internal Medicine
DX: K74.60 Unspecified cirrhosis of liver (principal); N18.4 Chronic kidney disease, stage 4 (severe)
CPT/HCPCS: 36415; 80048; 82105

== ENCOUNTER → 2022-07-07 | Outpatient (CLI) | payer MEDICARE ==
--- NOTE | 2022-07-07 12:27 | BD ---
EXAMINATION TYPE: Axial Bone Density DATE OF EXAM: 07/07/2022 COMPARISON: NONE CLINICAL HISTORY: 62 years year old Female. ICD-10 CODE: Z780 POST MENOPAUSAL WITHOUT HRT Height: 5'3 Weight: 185 FRAX RISK QUESTIONS: History of Fracture in Adulthood: Y Secondary Osteoporosis: 5. Chronic liver disease: y RISK FACTORS HISTORY OF: Hip Fracture (Right/ When: 2016 Surgery to Spine/Hip(right/ When: 2018 Active: n Postmenopausal woman: y Lost more than 2 inches in height since high school: y MEDICATIONS: Thyroid Medications: Which medication: Levothyroxine How Lon years Additional Medications: blood pressure, Additional History: raghav EXAM MEASUREMENTS: Bone mineral densitometry was performed using the [employer] System. Bone mineral density as measured about the Lumbar spine is: ----- L1-L4(G/cm2): 1.447 T Score Values are as follows: ----- L1: 0.5 ----- L2: 2.4 ----- L3: 2.8 ----- L4: 2.8 ----- L1-L4:2.2 Bone mineral density about the L hip (g/cm2): 0.628 T Score values are as follows: -----L Neck: -3.1 -----L Total: -3.0 FRAX%s: The graph provided illustrates a 25.2% chance for a major osteoporotic fx and a 7.6% chance f or the hips probability for fx in 10 years time. IMPRESSION: Osteoporosis (T Score less than -2.5). There is increased fracture risk and therapy is usually indicated based on age. Re-Screen 1-2 years. NOTE: T-SCORE=SD OF THE YOUNG ADULT MEAN.
--- NOTE | 2022-07-09 19:38 | MM ---
Reason for Exam: Screening (asymptomatic). Baseline mammogram. Patient History: Menarche at age 12. Patient has no children. Postmenopausal. Risk Values: Michell 5 year model risk: 1.7%. NCI Lifetime model risk: 7.7%. Prior Study Comparison: Patient's first Mammogram. No prior studies available for comparison. Tissue Density: There are scattered fibroglandular densities. Findings: Analyzed By CAD. Some minimal benign vascular calcifications are present. No significant mass, suspicious microcalcification, or other discrete abnormality is seen. Overall Assessment: Benign, BI-RAD 2 Management: Screening Mammogram of both breasts in 1 year. 1. Patient should continue monthly self breast exams. 2. A clinical breast exam by your physician is recommended on an annual basis. 3. This exam should not preclude additional follow-up of suspicious palpable abnormalities. Electronically signed and approved by: Esau Burdick M.D. Radiologist
== END | disposition home or self-care (01) ==
LOC: RADMAMWWP 08:01
PROVIDERS: ATTEND Family Medicine
DX: Z12.31 Encounter for screening mammogram for malignant neoplasm of breast (principal); M81.0 Age-related osteoporosis without current pathological fracture; Z78.0 Asymptomatic menopausal state
CPT/HCPCS: 77063; 77067; 77080

== ENCOUNTER → 2022-09-10 | Outpatient (CLI) | payer MEDICARE ==
--- NOTE | 2022-09-10 15:13 | XR ---
EXAMINATION TYPE: XR chest 2V DATE OF EXAM: 09/10/2022 COMPARISON: 05/14/2022 08/24/2017 TECHNIQUE: PA and lateral views submitted. HISTORY: Cough FINDINGS: The lungs are clear and there is no pneumothorax, pleural effusion, or focal pneumonia. Subsegmental right perihilar consolidation. No pneumothorax or pleural effusion. Diffuse osteopenia. Heart size no rmal. Hypertrophic and degenerative changes of the spine. Chronic appearing endplate compression deformity near the thoracolumbar junction. Surgical change involving the abdomen. IVC filter noted. Chronic shreyas earing endplate deformities involving the thoracolumbar junction. Mild hyperinflation suggestive of C OPD. IMPRESSION: 1. Stable linear changes involving the right lung most typical of scarring or discoid atelectasis.
== END | disposition home or self-care (01) ==
LOC: RADXRMAIN 14:33
PROVIDERS: ATTEND Family Medicine
DX: I25.10 Atherosclerotic heart disease of native coronary artery without angina pectoris (principal)
CPT/HCPCS: 71046

== ENCOUNTER → 2023-02-24 | Outpatient (CLI) | payer MEDICARE ==
[2023-02-24 12:31] LABS: Creatinine,Urine Random 37.2 mg/dL; Protein/Creatinine Ratio,Urine 0.699
--- NOTE | 2023-02-24 12:45 | XR ---
EXAMINATION TYPE: XR tibia fibula RT DATE OF EXAM: 02/24/2023 COMPARISON: NONE HISTORY: Pain TECHNIQUE: Two views are submitted. FINDINGS: The osseous structures are intact. Diffuse osteopenia. Narrowing of the medial and lateral compartmen ts of the knee joint with postsurgical changes in the distal femur. Vascular calcifications noted. IMPRESSION: 1. Diffuse osteopenia with arthropathy of the knee joint and postsurgical change distal femur.
--- NOTE | 2023-02-24 12:52 | XR ---
EXAMINATION TYPE: XR knee limited RT DATE OF EXAM: 02/24/2023 COMPARISON: NONE HISTORY: Pain TECHNIQUE: Two views are submitted. FINDINGS: Diffuse osteopenia. Postsurgical changes distal femur. Vascular calcifications. Moderate tricompartme nt drain arthropathy. Spurring along the upper margin of the patella. Osseous structures are intact. No acute fracture seen. IMPRESSION: 1. No acute fracture or dislocation. 2. Diffuse osteopenia and osteoarthritis
--- NOTE | 2023-02-24 12:54 | XR ---
EXAMINATION TYPE: XR humerus RT DATE OF EXAM: 02/24/2023 COMPARISON: NONE HISTORY: Pain TECHNIQUE: 2 views submitted. FINDINGS: The osseous structures are intact and the joint spaces are preserved. Diffuse osteopenia with AC sunny nt arthropathy. IMPRESSION: 1. No acute fracture or dislocation.
--- NOTE | 2023-02-24 12:56 | XR ---
EXAM TYPE: LUMBAR SPINE X RAY SERIES COMPARISON: NONE HISTORY: Pain TECHNIQUE: 4 views are submitted. FINDINGS: Alignment is anatomic. The pedicles are intact. The transverse processes are intact. There is IVC filter and previous surgery involving the right upper quadrant. There is multilevel hypertrophic and degenerative changes in the spine. There are numerous superior endplate compression fractures through out the entire visualized lumbar spine approximate 20% with mild to moderate deformities noted. Vascu lar calcifications noted. There is multilevel facet arthropathy. IMPRESSION: 1. Multilevel facet arthropathy and degenerative disc disease with foraminal encroachment suspected i nvolving the mid and lower lumbar spine. 2. Chronic-appearing superior endplate compression fractures at virtually all levels. Consider follow -up MRI.
--- NOTE | 2023-02-24 13:36 | XR ---
EXAMINATION TYPE: XR Hip Limited RT DATE OF EXAM: 02/24/2023 COMPARISON: NONE HISTORY: Pain TECHNIQUE: 2 views submitted FINDINGS: There is no evidence of erosive change or acute fracture. Extensive postsurgical changes and vascular calcifications noted. Sclerosis along the inferior margin of the right SI joint compatible with bonifacio re arthritic change. Diffuse osteopenia. IMPRESSION: 1. No evidence of acute fracture or dislocation. Postoperative change. If there is concern for loosen ing or infection correlate with triple phase bone scan.
[2023-02-24 14:46] LABS: Appearance,Urine Clear (Clear); Bilirubin,Urine Negative (Negative); Blood,Urine Negative (Negative); Color,Urine Yellow (Yellow); Ketones,Urine Negative (Negative); Nitrite,Urine Negative (Negative); PH, Urine 6.5 (5.0-8.0); Specific Gravity,Urine 1.012 (1.001-1.030); Urobilinogen,Urine 0.2 (0.2,1.0)
[2023-02-24 14:51] LABS: HCT 36.7 % (37.2-46.3); HGB 11.4 g/dL (12.0-15.0); MCH 28.9 pg (27.0-32.0); MCHC 31.1 g/dL (32.0-37.0); MCV 92.9 fL (80.0-97.0); Mean Platelet Volume 9.8 fL (9.5-12.2); NRBC Per 100 WBC 0 /100 WBCS (0.0-0.0); Platelet Count 164 X 10*3/uL (140-440); RBC 3.95 X 10*6/uL (4.10-5.20); RDW 13.8 % (11.5-14.5); WBC 5.01 X 10*3/uL (4.50-10.00)
[2023-02-24 14:57] LABS: Bacteria,Urine None Seen /HPF (None Seen)
[2023-02-24 15:14] LABS: African American GFR (CKD) 27.4 (60.0-200.0); Albumin 4.7 g/dL (3.8-4.9); Albumin/Globulin Ratio 1.99 (1.60-3.17); Anion Gap 9.9 mmol/L (10.00-18.00); BUN/Creat Ratio 23.5 Ratio (12.00-20.00); Calcium 10.3 mg/dL (8.7-10.3); Carbon Dioxide 26.3 mmol/L (20.0-27.5); Globulin 2.3 g/dL (1.6-3.3); Non-African American GFR(CKD) 23.7 (60.0-200.0); Potassium 5.3 mmol/L (3.5-5.5); Total Bilirubin 0.3 mg/dL (0.30-1.20)
== END | disposition home or self-care (01) ==
LOC: RADXRMAIN 11:23
PROVIDERS: ATTEND Family Medicine
DX: M51.36 Other intervertebral disc degeneration, lumbar region (principal); M47.816 Spondylosis without myelopathy or radiculopathy, lumbar region; M79.621 Pain in right upper arm; M25.551 Pain in right hip; M17.11 Unilateral primary osteoarthritis, right knee; M85.80 Other specified disorders of bone density and structure, unspecified site
CPT/HCPCS: 72100; 73501; 80053; 81001; 82105; 82570; 84156; 85027

== ENCOUNTER → 2023-03-11 | Outpatient (CLI) | payer MEDICARE ==
[2023-03-11 16:17] LABS: Creatinine,Urine Random 16.2 mg/dL; Protein/Creatinine Ratio,Urine 1.111
[2023-03-11 20:39] LABS: BUN/Creat Ratio 23.92 Ratio (12.00-20.00); Blood Urea Nitrogen 57.4 mg/dL (9.0-27.0); Calcium 10.3 mg/dL (8.7-10.3); Carbon Dioxide 24.8 mmol/L (21.6-31.8); Chloride 104 mmol/L (96-109); Glucose 87 mg/dL (70-110); Potassium 4.6 mmol/L (3.5-5.5); Sodium 142 mmol/L (135-145)
== END | disposition home or self-care (01) ==
LOC: LABWHC1 14:51
PROVIDERS: ATTEND Internal Medicine
DX: N18.4 Chronic kidney disease, stage 4 (severe) (principal)
CPT/HCPCS: 36415; 80048; 82570; 84156

== ENCOUNTER → 2023-09-11 | Outpatient (CLI) | payer MEDICARE ==
--- NOTE | 2023-09-11 14:29 | MR ---
EXAMINATION TYPE: MR lumbar spine wo con DATE OF EXAM: 09/11/2023 COMPARISON: None HISTORY: Lower back pain, RLE radiculopathy. TECHNIQUE: Multiplanar, multisequence images of the lumbar spine were acquired without IV contrast. Findings: There are multiple chronic mild compression deformities of the L2, L3 and L4 vertebral segments.. The re are mild chronic anterior wedge compression deformities T12 and L1. There is moderate degenerative disease at the L3-4 disc where there is moderate disc space narrowing, spondylosis and circumferential disc bulge. There is moderate degenerative disease at the T11/T12 di sc with moderate disc space narrowing and posterior disc bulge and spondylosis. There is mild degener ative disease at the L1-2, L2-3, L4-5 and L5-S1 levels where there is mild disc space narrowing and c ircumferential disc bulge. Secondary to right paracentral broad-based disc bulge and spondylosis, there is moderate compromise o f the right lateral recess at the T11/T12 level. Secondary to hypertrophy of the facets, circumferential disc bulge and thickening ligamentum flavum, there is mild spinal stenosis at the L1-2 level, moderate to severe spinal stenosis at the L2-3 leve l, severe spinal stenosis at the L3-4 level and mild spinal stenosis at the L4-5 level. Secondary to marked thickening of ligamentum flavum and hypertrophic spurring of the L5-S1 facets, there moderate spinal stenosis at the L5-S1 level. There is moderate to severe facet arthropathy throughout the lumbar region from L2 through S1. On the right, there is moderate neural foraminal stenosis at the L3-4 level and mild neural foraminal stenosis at the L1-2, L2-3, L4-5 and L5-S1 levels. On the left, there is moderate neural foraminal stenosis at the L1-2, L2-3, L3-4 and L4-5 levels and mild neural foraminal stenosis L5-S1 level. IMPRESSION: 1. Multilevel degenerative disease as described above. 2. Right lateral recess stenosis at the T11/T12 level secondary to broad-based disc protrusion and hy pertrophic spurring. 3. multilevel neural foraminal stenosis severe at the L3-4 level, moderate to severe at the L2-3 lev el , moderate at the L5-S1 level as described above and mild stenosis at the L1-2 level. 4. Advanced facet arthropathy throughout the lumbar spine. 5. Multilevel chronic compression deformities.
== END | disposition home or self-care (01) ==
LOC: RADMRIMAIN 10:08
PROVIDERS: ATTEND Physical Medicine & Rehabilitation
DX: M47.26 Other spondylosis with radiculopathy, lumbar region (principal); M99.73 Connective tissue and disc stenosis of intervertebral foramina of lumbar region; M51.16 Intervertebral disc disorders with radiculopathy, lumbar region; M48.061 Spinal stenosis, lumbar region without neurogenic claudication; M51.24 Other intervertebral disc displacement, thoracic region; M48.04 Spinal stenosis, thoracic region; M48.56XA Collapsed vertebra, not elsewhere classified, lumbar region, initial encounter for fracture
CPT/HCPCS: 72148

== ENCOUNTER → 2023-11-01 | Outpatient (CLI) | payer MEDICARE ==
--- NOTE | 2023-11-01 09:26 | US ---
EXAMINATION TYPE: US abdomen limited DATE OF EXAM: 11/01/2023 COMPARISON: CT 2017 CLINICAL INDICATION: Female, 63 years old with history of K74.60 CIRRHOSIS OF LIVER WITHOUT ASCITES; Cirrhosis, GB surgically absent TECHNIQUE: Multiple sonographic images of the right upper quadrant are obtained. FINDINGS: EXAM MEASUREMENTS: Liver Length: 15.4 cm CBD: 0.6 cm Right Kidney: 8.1 x 4.7 x 4.4 cm MIRROR PAINTER NOTES: Large pt body habitus, difficult to scan Pancreas: Obscured by bowel gas Liver: Limited views show coarse echotexture, no suspicious masses cystic structures or dilated duct s. Gallbladder: Surgically absent Evidence for sonographic Pickens's sign: No CBD: wnl Right Kidney: Cortical thinning, small in size IMPRESSION: 1. Coarsened echotexture to the liver compatible with hepatocellular disease. No suspicious hepatic masses. 2. The gallbladder surgically absent.
== END | disposition home or self-care (01) ==
LOC: RADUSWWP 08:35
PROVIDERS: ATTEND Internal Medicine
DX: K74.60 Unspecified cirrhosis of liver (principal); K76.9 Liver disease, unspecified; Z90.49 Acquired absence of other specified parts of digestive tract
CPT/HCPCS: 76705

== ENCOUNTER → 2024-12-02 | Outpatient (CLI) | payer MEDICARE ==
[2024-12-03 06:29] LABS: HCT 37.8 % (37.2-46.3); HGB 11.7 g/dL (12.0-15.0); MCH 28.4 pg (27.0-32.0); MCV 91.7 FL (80.0-97.0); Mean Platelet Volume 10.6 FL (9.5-12.2); NRBC Per 100 WBC 0 X 10*3/uL (0.00-0.01); Platelet Count 199 X 10*3/uL (140-440); RBC 4.12 X 10*6/uL (4.10-5.20); RDW 13.2 % (11.5-14.5); WBC 6.63 X 10*3/uL (4.50-10.00)
[2024-12-03 06:32] LABS: ALT 16 U/L (8-44); AST 27 U/L (13-35); Albumin 4.5 g/dL (3.8-4.9); Albumin/Globulin Ratio 1.61 Ratio (1.60-3.17); Alkaline Phosphatase 90 U/L (41-126); BUN/Creat Ratio 23.86 Ratio (12.00-20.00); Blood Urea Nitrogen 52.5 mg/dL (9.0-27.0); Chloride 102 mmol/L (96-109); Globulin 2.8 g/dL (1.6-3.3); Glucose 83 mg/dL (70-110); Potassium 4.2 mmol/L (3.5-5.5); Sodium 139 mmol/L (135-145); Total Bilirubin 0.4 mg/dL (0.3-1.2); Total Protein 7.3 g/dL (6.2-8.2)
[2024-12-03 07:08] LABS: Urine Creatinine 34.1 mg/dL (28.0-217.0)
[2024-12-03 07:11] LABS: Prothrombin Time 11.2 sec (9.9-11.9)
== END | disposition home or self-care (01) ==
LOC: LABWHC1 11:47
PROVIDERS: ATTEND Internal Medicine
DX: E11.22 Type 2 diabetes mellitus with diabetic chronic kidney disease (principal); N18.4 Chronic kidney disease, stage 4 (severe); K74.69 Other cirrhosis of liver
CPT/HCPCS: 36415; 80053; 82043; 82105; 82570; 85027; 85610